=== PATIENT | female | born 1950 | race African-American/Black ===

== ENCOUNTER 2021-05-19 16:08 | Emergency (ER) | payer MEDICARE, OTHER ==
[~2021-05-19] VITALS: Ht 170.2 cm; Wt 91.0 kg
[~2021-05-19 16:08] MED LIST: albuterol; hctz
[2021-05-19] MEDS ORDERED: KETOROLAC 30MG/ML VIAL IV STA (18:20)
[2021-05-19] MEDS ORDERED: SODIUM CHLORIDE 0.9% 1,000 ML IV ONE (18:30)
[2021-05-19] MEDS ORDERED: ASPIRIN 325MG EC TABLET PO ONE (18:30)
[2021-05-19 18:32] LABS: BASOPHILS % 0.4 % (0.0-2.0); EOSINOPHILS % 1.5 % (0.0-5.0); HEMATOCRIT. 39.8 % (36.0-48.0); HEMOGLOBIN. 12.8 g/dL (12.0-16.0); LYMPHOCYTES % 14.7 % (20.0-50.0); MEAN CORPUSCULAR HEMOGLOBIN 21.3 pg (28.0-32.0); MEAN CORPUSCULAR VOLUME 66.2 fL (81.0-99.0); MONOCYTES % 10.6 % (2.0-8.0); NEUTROPHILS % 72.8 % (40.0-76.0); PLATELET 262 x1000/uL (130-400)
[2021-05-19 18:38] LABS: CHLORIDE 105 mEq/L (98-107)
[2021-05-19] MEDS ORDERED: SODIUM CHLORIDE 0.9% 500 ML IV ONE (18:45)
[2021-05-19 18:54] LABS: PLATELET ESTIMATE NORMAL
[2021-05-19 19:36] LABS: CLARITY URINE CLEAR (CLEAR); COLOR URINE YELLOW (YELLOW); KETONES URINE NEGATIVE (NEGATIVE); LEUKOCYTE ESTERASE URINE NEGATIVE (NEGATIVE); NITRITE URINE NEGATIVE (NEGATIVE); OCCULT BLOOD URINE NEGATIVE (NEGATIVE); PROTEIN URINE NEGATIVE (NEGATIVE); SPECIFIC GRAVITY URINE 1.012 (1.005-1.030); UROBILINOGEN URINE 0.2 E.U./dL (0.2-1.0)
[2021-05-19] MEDS ORDERED: POTASSIUM CHLORIDE 20MEQ/PACKET PO ONE (19:45)
[2021-05-19 21:31] VITALS: BP 165/58
== END 2021-05-19 21:36 | disposition home or self-care (01) ==
LOC: ER 16:08
DX: I10 Essential (primary) hypertension (principal); R35.0 Frequency of micturition; E87.6 Hypokalemia
CPT/HCPCS: 36415; 71045; 80053; 81003; 83880; 84484; 85025; 93005; 96361; 96374; 99283; J1885; J7030; J7040

== ENCOUNTER 2021-06-04 06:31 | Emergency (ER) | payer MEDICARE, OTHER ==
[~2021-06-04] VITALS: Ht 165.1 cm; Wt 90.8 kg
[2021-06-04] MEDS ORDERED: IBUPROFEN 600MG TABLET PO STA (07:07)
[2021-06-04] MEDS ORDERED: IBUP-2029 MT (08:12)
[2021-06-04 08:41] VITALS: BP 127/75
== END 2021-06-04 08:41 | disposition home or self-care (01) ==
LOC: ER 06:31
DX: R07.89 Other chest pain (principal); R53.1 Weakness; I10 Essential (primary) hypertension
CPT/HCPCS: 71045; 93005; 99283

== ENCOUNTER 2024-01-24 14:10 | Emergency (ER) | payer MEDICARE, OTHER ==
[~2024-01-24] VITALS: Ht 172.7 cm; Wt 84.0 kg
[~2024-01-24 14:10] MED LIST changes: +ATOR10TA69 PO; +BIMA2.5D4 OP; +BRIM10DR2 OP; +HYDR25TA PO; +IBUP-2029 MT; +OLME40TA18 PO; +TRAZ-252 PO
[2024-01-24 14:13] VITALS: O2SAT 97
[2024-01-24 15:38] VITALS: BP 184/97; PULSE 116; RESP 18; TEMP 36.78072; O2SAT 98
[2024-01-24] MEDS ORDERED: LORAZEPAM 2MG/ML INJ IM ONE (15:45)
[2024-01-24] MEDS ORDERED: HALOPERIDOL LACTATE 5MG/ML VIAL IM ONE (15:45)
[2024-01-24] MEDS ORDERED: DIPHENHYDRAMINE 50MG/ML VIAL IM ONE (15:45)
== END 2024-01-24 16:30 | disposition left against medical advice (07) ==
LOC: ER 14:10 → CANBEDREQ 16:19 → ER 16:30
DX: R45.4 Irritability and anger (principal); I10 Essential (primary) hypertension; Z88.8 Allergy status to other drugs, medicaments and biological substances; Z53.29 Procedure and treatment not carried out because of patient's decision for other reasons; Z90.89 Acquired absence of other organs; Z90.49 Acquired absence of other specified parts of digestive tract; Z79.899 Other long term (current) drug therapy
CPT/HCPCS: 99283